=== PATIENT | female | born 1980 | race Caucasian/White ===

== ENCOUNTER 2022-05-24 15:20 | Inpatient (IN) | payer BC ==
[2022-05-24] MEDS ORDERED: CARBOPROST TROMETHAMINE 250 MCG/ML 1 ML AMP IM PRN (16:24)
[2022-05-24] MEDS ORDERED: LIDOCAINE 0.5% (PF) 5 MG/ML (50 ML SDV) SQ PRN (16:24)
[2022-05-24] MEDS ORDERED: TERBUTALINE 1 MG/ML VIAL SQ PRN (16:24)
[2022-05-24] MEDS ORDERED: OXYTOCIN 10 UNIT/ML 1 ML VIAL IM PRN (16:24)
[2022-05-24] MEDS ORDERED: METHYLERGONOVINE 0.2 MG/ML 1 ML AMP IM PRN (16:24)
[2022-05-24] MEDS ORDERED: OXYTOCIN 30 UNITS/500 ML NS 30 UNIT in SALINE 1 500ML.BAG IV SCH (16:30)
[2022-05-24] MEDS: LACTATED RINGERS 1,000 ML IV SCH (16:37)
[2022-05-24 16:59] LABS: Basophils # (A) 0.1 k/uL (0-0.2); Basophils % (A) 0 %; Eosinophils # (A) 0.1 k/uL (0-0.7); Eosinophils % (A) 1 %; HCT 36.4 % (34.0-46.0); Lymphocytes % (A) 13 %; MCH 33.1 pg (25.0-35.0); MCHC 32.8 g/dL (31.0-37.0); MCV 100.7 fL (80.0-100.0); Mean Platelet Volume 9.4; Monocytes # (A) 0.6 k/uL (0-1.0); Monocytes % (A) 4 %; Neutrophils # (A) 12.1 k/uL (1.3-7.7); Neutrophils % (A) 80 %; Platelet Count 299 k/uL (150-450); RBC 3.62 m/uL (3.80-5.40); RDW 12.4 % (11.5-15.5); WBC 15.1 k/uL (3.8-10.6)
--- NOTE | 2022-05-24 18:06 | P.HPOB ---
History of Present Illness H&P Date: 05/24/22 Chief Complaint: Leaking of fluid. This patient is a pleasant 42-year-old 2 para 1 female estimated date of confinement 05/30/2022 estimated gestational age 39 and one sevenths weeks who presents to labor and delivery with complaints of gush of fluid at 2:15 this aft ernoon. Patient noted the fluid was drained. Patient's care per Dr. Stanford and is complicated by advanced for maternal age. Patient was referred to maternal- medicine and has had a negative evaluation. Patient's had regular testing including biophysical profiles and nonstress tests. Review of Systems Genitourinary: Reports Menstruation: Reports amenorrhea Past Medical History Past Medical History: GERD/Reflux History of Any Multi-Drug Resistant Organisms: None Reported Additional Past Surgical History / Comment(s): left breast lumpectomy age 20; patient's had a thyroid biopsy. Past Anesthesia/Blood Transfusion Reactions: Family History of Problems w/ Anesthesia, Postoperative Nausea & Vomiting (PONV) Past Psychological History: No Psychological Hx Reported Smoking Status: Current every day smoker Past Alcohol Use History: None Reported Past Drug Use History: None Reported - Past Family History Father Family Medical History: Diabetes Mellitus, Hypertension Medications and Allergies Home Medications Medication Instructions Recorded Confirmed Type Cetirizine HCl [Zyrtec] 10 mg PO DAILY 05/24/22 05/24/22 History Vit No.179/Iron/Folic 05/24/22 History [ Tablet] diphenhydrAMINE [Benadryl] 25 mg PO BID PRN 05/24/22 05/24/22 History Allergies Allergy/AdvReac Type Severity Reaction Status Date / Time No Known Allergies Allergy Verified 05/24/22 16:17 Exam Vital Signs Temp Pulse Resp BP Pulse Ox 05/24/22 16:42 98.7 F 81 18 147/80 100 Intake and Output 05/24/22 05/24/22 05/24/22 06:59 14:59 22:59 Other: Weight 102.965 kg - OBG Physical Exam Breast: both: normal (no masses) Abdomen: bowel sounds normal, no diffuse tenderness, no bruit present, no guarding noted, no hepatomegaly, no splenomegaly, no mass Vulva: both: normal Vagina: no discharge Cervix: no lesion (Cervix is 2 cm and effaced -2 station), no discharge Uterus: enlarged (Fundal height consistent with dates) Results blood work shows she is O positive, rubella immune, RPR is nonreactive, hepatitis B is negative, HIV is nonreactive, Glucola was normal, anatomy ultrasound was normal, group B strep was negative. Result Diagrams: 05/24/22 16:34 Abnormal Lab Results - Last 24 Hours (Table) 05/24/22 Range/Units 16:34 WBC 15.1 H (3.8-10.6) k/uL RBC 3.62 L (3.80-5.40) m/uL MCV 100.7 H (80.0-100.0) fL Neutrophils # 12.1 H (1.3-7.7) k/uL Assessment and Plan Assessment: This is a pleasant 42-year-old 2 para 1 female 39 and one sevenths weeks gestation admitted to labor and delivery with spontaneous rupture membranes, meconium-stained fluid, and intermittent contractions. Plan is Pitocin a ugmentation of labor and anticipate vaginal delivery. Patient this time does not request an epidural but will take some IV pain medications or other pain control options if she desires. Anticipate vaginal delivery. (1) 39 weeks gestation of Current Visit: Yes Status: Acute Code(s): Z3A.39 - 39 WEEKS GESTATION OF SNOMED Code(s): 51348625 (2) Spontaneous rupture of amniotic membranes Current Visit: Yes Status: Acute Code(s): TAL1991 - SNOMED Code(s): 261189884 (3) Meconium in amniotic fluid Current Visit: Yes Status: Acute Code(s): P96.83 - MECONIUM STAINING SNOMED Code(s): 164089159 (4) Elderly multigravida Current Visit: Yes Status: Acute Code(s): O09.529 - SUPERVISION OF ELDERLY MULTIGRAVIDA, UNSPECIFIED TRIMESTER SNOMED Code(s): 858629970
[2022-05-24 18:07] LABS: INR 0.8 (<1.2); Partial Thromboplastin Time 23.8 sec (22.0-30.0); Prothrombin Time 9.5 sec (9.0-12.0)
[2022-05-24 18:11] LABS: ALT 21 U/L (4-34); AST 27 U/L (14-36); African American GFR (CKD) >90 (>60 ml/min/1.73 sqM); Blood Urea Nitrogen 12 mg/dL (7-17); LDH 518 U/L (313-618); Non-African American GFR(CKD) >90 (>60 ml/min/1.73 sqM); Uric Acid 4.4 mg/dL (3.7-7.4)
[2022-05-24] MEDS ORDERED: BUTORPHANOL 1 MG/ML 1 ML VIAL IV PRN (18:17)
[2022-05-24 18:26] LABS: Appearance,Urine Turbid (Clear); Bacteria,Urine Rare /hpf; Bilirubin,Urine Negative (Negative); Blood,Urine Moderate (Negative); Budding Yeast,Urine Moderate /hpf; Color,Urine Yellow; Glucose,Urine (UA) Negative (Negative); Ketones,Urine Negative (Negative); Leukocyte Esterase,Urine Moderate (Negative); Mucus,Urine Rare /hpf; Nitrite,Urine Negative (Negative); Protein,Urine Trace (Negative); RBC,Urine 114 /hpf (0-5); Specific Gravity,Urine 1.016 (1.001-1.035); Squamous Epithelial Cell,Urine 20 /hpf (0-4); Urobilinogen,Urine <2.0 mg/dL (<2.0); WBC,Urine 21 /hpf (0-5)
[2022-05-24 18:33] LABS: Creatinine,Urine Random 113.9 mg/dL; Protein/Creatinine Ratio,Urine 0.29
[2022-05-24] MEDS ORDERED: ROPIVACAINE 100 MG, fentaNYL (PF). 200 MCG in SODIUM CHLORIDE 0.9% 76 ML EPIDURAL ONE (20:30)
[2022-05-25] MEDS: LACTATED RINGERS 1,000 ML IV SCH (00:25)
[2022-05-25] MEDS ORDERED: HYDROCORTISONE 2.5% RECTAL CREAM 30 GM TUBE RECTAL PRN (00:36)
[2022-05-25] MEDS ORDERED: ZOLPIDEM 5 MG TAB PO PRN (00:36)
[2022-05-25] MEDS ORDERED: ACETAMINOPHEN TAB 325 MG TAB PO PRN (00:36)
[2022-05-25] MEDS ORDERED: SIMETHICONE 80 MG CHEWABLE PO PRN (00:36)
[2022-05-25] MEDS ORDERED: bisacodyL 10 MG SUPP RECTAL PRN (00:36)
[2022-05-25] MEDS ORDERED: diphenhydrAMINE 50 MG/ML 1 ML VIAL IVP PRN (00:36)
[2022-05-25] MEDS ORDERED: LANOLIN CREAM 5 GM TUBE TOPICAL PRN (00:36)
[2022-05-25] MEDS ORDERED: diphenhydrAMINE 25 MG CAP PO PRN (00:36)
[2022-05-25] MEDS ORDERED: BENZOCAINE/MENTHOL SPRAY 1 GM/SPRAY AEROSOL TOPICAL PRN (00:36)
--- NOTE | 2022-05-25 00:42 | P.PROBDLV ---
Vaginal Delivery Note - . Vaginal Delivery Note: Normal spontaneous vaginal delivery viable female Apgars 9 and 9 delivery time was 0018 hours. Please see dictated H&P for intimate details of this patient's admission. In brief summary this is a pleasant 42-year-old 2 para 1 female estimated gestational age 39 and one sevenths weeks who presents to labor and delivery complains of spontaneous rupture membranes 2:00 this afternoon for meconium- stained fluid. heart tones are category 1. Patient's not having regular contractions and therefore has some Pitocin augmentation of labor. Patient initially did not want an epidural however she did receive 1 dose of Stadol and became very uncomfortable at 3 cm dilated. At this time, she did request an epidural which is placed with good relief. Patient's labor progresses quickly thereafter. Patient gets to complete pushes the head to the perineum. Posterior perineum was supported and we have controlled delivery of the 's head over the intact perineum. Mouth and nares are bulb suctioned and the nurse financial administration officer is present for delivery due to meconium. Infant's head is straight occiput anterior presentation. There is a double nuchal cord which is loose and reduced. At this time we have spontaneous delivery of the anterior and posterior shoulder and rest this infant's body without maternal effort. This is a vigorous viable female infant Apgars are 9 and 9 delivery time was 0018 hours. After delivery of the , she is laid on the mother's abdomen. After the cord was done pulsating is doubly clamped and cut. Umbilical cord appears quite thin and green stained. The placenta is spontaneously delivered intact. Of note the placenta appears small and has marginal cord insertion. Inspection of perineum shows no lacerations and no repairs required. All counts correct 3. There are no complications. Blood loss is less than 100 mL. and mother are stable in delivery room.
[2022-05-25] MEDS ORDERED: OXYTOCIN 30 UNITS/500 ML NS 30 UNIT in SALINE 1 500ML.BAG IV SCH (00:45)
[2022-05-25] MEDS: IBUPROFEN 600 MG TAB PO PRN ×3 (02:56→22:04)
[2022-05-25] MEDS: SENNOSIDES-DOCUSATE SODIUM 1 EACH TAB PO SCH ×2 (08:52→20:24)
[2022-05-26 07:01] LABS: Basophils % (A) 0 %; Eosinophils # (A) 0.1 k/uL (0-0.7); Eosinophils % (A) 1 %; HCT 31.6 % (34.0-46.0); HGB 10.8 gm/dL (11.4-16.0); Lymphocytes # (A) 2.1 k/uL (1.0-4.8); Lymphocytes % (A) 14 %; MCH 34.4 pg (25.0-35.0); MCHC 34.3 g/dL (31.0-37.0); MCV 100.5 fL (80.0-100.0); Mean Platelet Volume 9.2; Monocytes # (A) 0.6 k/uL (0-1.0); Monocytes % (A) 4 %; Neutrophils # (A) 12.1 k/uL (1.3-7.7); Neutrophils % (A) 79 %; Platelet Count 282 k/uL (150-450); RBC 3.15 m/uL (3.80-5.40); RDW 12.2 % (11.5-15.5); WBC 15.4 k/uL (3.8-10.6)
[2022-05-26] MEDS: IBUPROFEN 600 MG TAB PO PRN (08:37)
[2022-05-26] MEDS: SENNOSIDES-DOCUSATE SODIUM 1 EACH TAB PO SCH (08:38)
[2022-05-26 08:51] VITALS: BP 138/77; PULSE 75; RESP 17; TEMP 97.5
--- NOTE | 2022-05-26 08:58 | P.DS ---
Providers Date of admission: 05/24/22 15:20 Expected date of discharge: 05/26/22 Attending physician: Riana Stanford Primary care physician: Stated None - Discharge Diagnosis(es) (1) Normal vaginal delivery Current Visit: Yes Status: Acute Hospital Course: Patient presented in labor. She underwent a normal vaginal delivery. course was uncomplicated. She denies nausea, vomiting, chest pain, shortness of breath or any calf pain. Patient will be discharged home day #1 in stable condition to follow-up with me in 6 weeks. Plan - Discharge Summary New Discharge Prescriptions: New Ibuprofen [Motrin] 600 mg PO Q6HR PRN #30 tab PRN Reason: Mild Pain (Scale 1 To 3) No Action Vit No.179/Iron/Folic [ Tablet] diphenhydrAMINE [Benadryl] 25 mg PO BID PRN PRN Reason: Allergy Symptoms Cetirizine HCl [Zyrtec] 10 mg PO DAILY Discharge Medication List Cetirizine HCl [Zyrtec] 10 mg PO DAILY 05/24/22 [History] Vit No.179/Iron/Folic [ Tablet] 05/24/22 [History] diphenhydrAMINE [Benadryl] 25 mg PO BID PRN 05/24/22 [History] Ibuprofen [Motrin] 600 mg PO Q6HR PRN #30 tab 05/26/22 [Rx] Follow up Appointment(s)/Referral(s): Riana Stanford DO [Doctor of Osteopathic Medicine] - 07/12/22 3:45 pm Discharge Disposition: HOME SELF-CARE
== END 2022-05-26 11:30 | disposition home or self-care (01) | DRG 807 ==
LOC: 4FBP 15:20
PROVIDERS: ADMIT Obstetrics & Gynecology; ATTEND Obstetrics & Gynecology
PROC: 10E0XZZ Delivery of Products of Conception, External Approach (ICD-10-PCS; principal; 2022-05-24)
DX: O77.0 Labor and delivery complicated by meconium in amniotic fluid (principal); Z37.0 Single live birth; F17.210 Nicotine dependence, cigarettes, uncomplicated; O43.193 Other malformation of placenta, third trimester; O69.81X0 Labor and delivery complicated by cord around neck, without compression, not applicable or unspecified; O99.334 Smoking (tobacco) complicating childbirth; Z3A.39 39 weeks gestation of pregnancy; Z28.310 Unvaccinated for COVID-19; Z28.21 Immunization not carried out because of patient refusal
CPT/HCPCS: 59025; 81001; 82565; 82570; 83615; 84112; 84156; 84450; 84460; 84520; 84550; 85025; 85610; 85730; 86850; 86900; 86901; 88307; 99213

== ENCOUNTER 2024-04-29 22:55 | Outpatient (CLI) | payer BC ==
--- NOTE | 2024-05-29 09:32 | P.MSEPDOC ---
Presenting Problems - Arrival Data Date of Arrival on Unit: 04/29/24 Time of Arrival on Unit: 22:55 Mode of Transport: Ambulatory - Complaint OB-Reason for Admission/Chief Complaint: Pain Comment: PT c/o epigastric pain 5/10 Medical History - Information : 3 Para: 2 Term: 2 : 0 Abortions: Spontaneous or Elective: 0 Number of Living Children: 2 - Gestational Age Gestational Age by MARV (wks/days): 29 Weeks and 6 Days Review of Systems - Review of Systems Constitutional: No problems Breast: No problems ENT: No problems Cardiovascular: No problems Respiratory: No problems Gastrointestinal: No problems Genitourinary: No problems Musculoskeletal: No problems Neurological: No problems Skin: No problems Medical Screen Scoring - Assessment - Baby A Baseline FHR: 125 Heart Rate - NICHD Category: Category I (Normal) NST: Reactive Physician Notification - Physician Notified Physician Notified Date: 04/29/24 Physician Notified Time: 23:25 Physician: Lakshmi Theodore New Order Received: Yes - Notification Comment Comment: Pt of Dr. Stanford 26 weeks and 5 days. PT c/o epigastric pain 5/10 starting around 2030 following eatting dinner. Pt states she had heartburn prior to dinner and took omeprazol. PT took pepcid after dinner and pain unrelieved. Discussed vitals, NST reactive and cat 1 tones. Order recieved to d/c home and encourage clear liquids tonight and bland diet if heartburn before future meals. Pt to not take omeprazol or pepcid tonight and to follow up with Dr. Stanford prior to next scheduled appointment if pain persists or increases. Maternal Triage Index - Maternal Triage Index Presenting for scheduled procedure w/no complaint: No - Stat/Priority 1 Stat Priority 1: No - Urgent/Priority 2 Urgent Priority 2: No - Prompt/Priority 3 Prompt Priority 3: No - Non-Urgent/Priority 4 Non-Urgent Priority 4: Yes Criteria Met for Priority 4: PT c/o epigastric pain 5/10 starting around 2030 following eatting dinner. Pt states she had heartburn prior to dinner and took omeprazol. PT took pepcid after dinner and pain unrelieved. Disposition - Disposition OB Disposition: Discharge to home Discharge Date: 04/29/24 Discharge Time: 23:40 I agree with the RN Medical Screening Exam: Yes Case reviewed; plan agreed upon as documented in EMR&OBIX.: Yes Diagnosis: RELATED CONDITIONS, UNSPECIFIED, SECOND TRIMESTER
== END 2024-04-29 23:40 | disposition home or self-care (01) ==
LOC: FBPOP 22:55
PROVIDERS: ATTEND Obstetrics & Gynecology Obstetrics
CPT/HCPCS: 59025; 99213

== ENCOUNTER 2024-07-07 05:40 | Inpatient (IN) | payer BC, OTHER ==
[2024-07-07] MEDS ORDERED: METHYLERGONOVINE 0.2 MG/ML 1 ML AMP IM PRN (05:56)
[2024-07-07] MEDS ORDERED: TERBUTALINE 1 MG/ML VIAL SQ PRN (05:56)
[2024-07-07] MEDS ORDERED: LIDOCAINE 0.5% (PF) 5 MG/ML (50 ML SDV) SQ PRN (05:56)
[2024-07-07] MEDS ORDERED: CARBOPROST TROMETHAMINE 250 MCG/ML 1 ML AMP IM PRN (05:56)
[2024-07-07] MEDS ORDERED: OXYTOCIN 10 UNIT/ML 1 ML VIAL IM PRN (05:56)
[2024-07-07] MEDS ORDERED: miSOPROStoL 200 MCG TAB RECTAL PRN (05:56)
[2024-07-07] MEDS ORDERED: miSOPROStoL 200 MCG TAB PO PRN (05:56)
[2024-07-07] MEDS ORDERED: TRANEXAMIC 1,000 MG/100ML-NACL 1,000 MG in EMPTY BAG 1 BAG IV PRN (05:56)
[2024-07-07 06:12] LABS: Basophils # (A) 0.1 k/uL (0-0.2); Basophils % (A) 0 %; Eosinophils # (A) 0.2 k/uL (0-0.7); Eosinophils % (A) 1 %; HCT 34.5 % (34.0-46.0); HGB 11.4 gm/dL (11.4-16.0); Lymphocytes # (A) 2.7 k/uL (1.0-4.8); Lymphocytes % (A) 15 %; MCHC 33.2 g/dL (31.0-37.0); MCV 99.4 fL (80.0-100.0); Monocytes # (A) 0.7 k/uL (0-1.0); Monocytes % (A) 4 %; Neutrophils # (A) 14.2 k/uL (1.3-7.7); Neutrophils % (A) 78 %; Platelet Count 431 k/uL (150-450); RBC 3.47 m/uL (3.80-5.40); RDW 12.6 % (11.5-15.5); WBC 18.1 k/uL (3.8-10.6)
[2024-07-07] MEDS: LACTATED RINGERS 1,000 ML IV SCH (06:14)
[2024-07-07] MEDS: OXYTOCIN 30 UNITS/500 ML NS 30 UNIT in SALINE 1 500ML.BAG IV SCH (06:35)
[2024-07-07] MEDS ORDERED: fentaNYL (PF) 50 MCG/ML 5 ML AMP ONE (09:43)
[2024-07-07] MEDS ORDERED: ROPIVACAINE 5 MG/ML 30 ML VIAL ONE (09:43)
[2024-07-07] MEDS ORDERED: SODIUM CHLORIDE 0.9% 250 ML BAG ONE (09:43)
--- NOTE | 2024-07-07 12:04 | P.HPOB ---
History of Present Illness H&P Date: 07/07/24 Chief Complaint: induction of labor 44 year old at 39 weeks 4 days presents for induction of labor. Her cervix is 1-2/70/-3. She is christ irregularly. heart tones 140 with moderate variability and reactive. Review of Systems All systems: negative Constitutional: Denies chills, Denies fever Eyes: denies blurred vision, denies pain Ears, nose, mouth and throat: Denies headache, Denies sore throat Cardiovascular: Denies chest pain, Denies shortness of breath Respiratory: Denies cough Gastrointestinal: Denies abdominal pain, Denies diarrhea, Denies nausea, Denies vomiting Genitourinary: Denies dysuria, Denies hematuria Musculoskeletal: Denies myalgias Integumentary: Denies pruritus, Denies rash Neurological: Denies numbness, Denies weakness Psychiatric: Denies anxiety, Denies depression Endocrine: Denies fatigue, Denies weight change Past Medical History Past Medical History: GERD/Reflux History of Any Multi-Drug Resistant Organisms: None Reported Additional Past Surgical History / Comment(s): left breast lumpectomy age 20; patient's had a R thyroid biopsy. Past Anesthesia/Blood Transfusion Reactions: Postoperative Nausea & Vomiting (PONV) Past Psychological History: No Psychological Hx Reported Smoking Status: Current every day smoker Past Alcohol Use History: None Reported Past Drug Use History: None Reported - Past Family History Father Family Medical History: Diabetes Mellitus, Hypertension Medications and Allergies Home Medications Medication Instructions Recorded Confirmed Type Cetirizine HCl [Zyrtec] 10 mg PO DAILY 05/24/22 04/29/24 History Vit No.179/Iron/Folic 1 tab PO DAILY 05/24/22 04/29/24 History [ Tablet] Famotidine [Pepcid] 10 mg PO DAILY 04/29/24 04/29/24 History Omeprazole [PriLOSEC] 10 mg PO DAILY 04/29/24 04/29/24 History Allergies Allergy/AdvReac Type Severity Reaction Status Date / Time No Known Allergies Allergy Verified 07/07/24 05:55 Exam Osteopathic Statement: *. No significant issues noted on an osteopathic structural exam other than those noted in the History and Physical/Consult. Intake and Output 07/06/24 07/07/24 07/07/24 22:59 06:59 14:59 Other: # Voids 1 Weight 108.862 kg Heart: Regular rate and rhythm Lungs: Clear to auscultation bilaterally Abdomen: Soft, nontender Extremities: Negative Homans sign Results Result Diagrams: 07/07/24 06:02 Abnormal Lab Results - Last 24 Hours (Table) 07/07/24 Range/Units 06:02 WBC 18.1 H (3.8-10.6) k/uL RBC 3.47 L (3.80-5.40) m/uL Neutrophils # 14.2 H (1.3-7.7) k/uL Assessment and Plan (1) Encounter for induction of labor Current Visit: Yes Status: Acute Code(s): Z34.90 - ENCNTR FOR SUPRVSN OF NORMAL , UNSP, UNSP TRIMESTER SNOMED Code(s): 161312888 (2) Advanced maternal age (AMA), 40 years or greater Current Visit: Yes Status: Acute Code(s): NUO9493 - SNOMED Code(s): 597413315 (3) 39 weeks gestation of Current Visit: No Status: Acute Code(s): Z3A.39 - 39 WEEKS GESTATION OF SNOMED Code(s): 81221412 (4) Tobacco abuse Current Visit: Yes Status: Acute Code(s): Z72.0 - TOBACCO USE SNOMED Code(s): 012967042 Plan: 1. induction of labor with amniotomy and pitocin 2. anticipate normal vaginal delivery.
[2024-07-07] MEDS ORDERED: diphenhydrAMINE 50 MG CAP PO PRN (18:49)
[2024-07-07] MEDS ORDERED: diphenhydrAMINE 25 MG CAP PO PRN (18:49)
[2024-07-07] MEDS ORDERED: HYDROCORTISONE 2.5% RECTAL CREAM 30 GM TUBE RECTAL PRN (18:49)
[2024-07-07] MEDS ORDERED: BENZOCAINE/MENTHOL SPRAY 1 GM/SPRAY AEROSOL TOPICAL PRN (18:49)
[2024-07-07] MEDS ORDERED: SIMETHICONE 80 MG CHEWABLE PO PRN (18:49)
[2024-07-07] MEDS ORDERED: ZOLPIDEM 5 MG TAB PO PRN (18:49)
[2024-07-07] MEDS ORDERED: diphenhydrAMINE 50 MG/ML 1 ML VIAL IVP PRN ×2 (18:49)
[2024-07-07] MEDS ORDERED: LANOLIN CREAM 1 GM TUBE TOPICAL PRN (18:49)
[2024-07-07] MEDS: IBUPROFEN 800 MG TAB PO PRN (19:18)
[2024-07-07] MEDS: SENNOSIDES-DOCUSATE SODIUM 1 EACH TAB PO SCH (21:07)
[2024-07-07] MEDS: ACETAMINOPHEN TAB 500 MG TAB PO PRN (23:47)
[2024-07-08 06:09] LABS: Basophils % (A) 0 %; Eosinophils # (A) 0.2 k/uL (0-0.7); Eosinophils % (A) 1 %; HCT 31.1 % (34.0-46.0); HGB 10.1 gm/dL (11.4-16.0); Lymphocytes # (A) 2.4 k/uL (1.0-4.8); Lymphocytes % (A) 13 %; MCH 32.6 pg (25.0-35.0); MCHC 32.4 g/dL (31.0-37.0); MCV 100.6 fL (80.0-100.0); Mean Platelet Volume 8.3; Monocytes # (A) 0.9 k/uL (0-1.0); Monocytes % (A) 5 %; Neutrophils # (A) 15.5 k/uL (1.3-7.7); Neutrophils % (A) 80 %; Platelet Count 349 k/uL (150-450); RBC 3.09 m/uL (3.80-5.40); RDW 12.6 % (11.5-15.5); WBC 19.3 k/uL (3.8-10.6)
--- NOTE | 2024-07-08 07:41 | P.PROBDLV ---
Vaginal Delivery Note - . Vaginal Delivery Note: 44 year old at 39 weeks 4 days presents for induction of labor. Her cervix is 1-2/70/-3. She is christ irregularly. heart tones 140 with moderate variability and reactive.Amniotomy performed at 7:20 AM and clear fluid noted. When she was uncomfortable she did get an epidural. Her cervix was completely dilated at 1700. She pushed, and a viable male over intact perineum under epidural anesthesia at 1720. Delivered OA, and anterior shoulder delivered gentle downward body followed by posterior shoulder and rest of body. Nose and mouth bulb suction, ligament cut, infant placed on mother's abdomen. Apgars 9, 9, weight 9 lbs. 5 oz. Placenta delivered spontaneously, intact with three-vessel cord at 1723. Vagina, cervix, perineum inspected. No lacerations noted. Estimated blood loss 150 mL. Mother and baby in stable condition.
--- NOTE | 2024-07-08 07:53 | P.DS ---
Providers Date of admission: 07/07/24 05:40 Expected date of discharge: 07/08/24 Attending physician: Riana Stanford Primary care physician: Stated None - Discharge Diagnosis(es) (1) Encounter for induction of labor Current Visit: Yes Status: Resolved (2) Advanced maternal age (AMA), 40 years or greater Current Visit: Yes Status: Resolved (3) 39 weeks gestation of Current Visit: No Status: Resolved (4) Tobacco abuse Current Visit: Yes Status: Resolved Hospital Course: Status post normal vaginal delivery day #1 patient seen and examined. Denies nausea, vomiting, chest pain, shortness of breath or calf pain. Patient be discharged home day #1 in stable condition to follow-up with me in 6 weeks. Plan - Discharge Summary New Discharge Prescriptions: New Ibuprofen [Motrin] 800 mg PO Q8HR PRN #30 tab PRN Reason: Pain No Action Vit No.179/Iron/Folic [ Tablet] 1 tab PO DAILY Cetirizine HCl [Zyrtec] 10 mg PO DAILY Famotidine [Pepcid] 10 mg PO DAILY Omeprazole [PriLOSEC] 10 mg PO DAILY Discharge Medication List Cetirizine HCl [Zyrtec] 10 mg PO DAILY 05/24/22 [History] Vit No.179/Iron/Folic [ Tablet] 1 tab PO DAILY 05/24/22 [History] Famotidine [Pepcid] 10 mg PO DAILY 04/29/24 [History] Omeprazole [PriLOSEC] 10 mg PO DAILY 04/29/24 [History] Ibuprofen [Motrin] 800 mg PO Q8HR PRN #30 tab 07/08/24 [Rx] Follow up Appointment(s)/Referral(s): Riana Stanford DO [Doctor of Osteopathic Medicine] - 08/19/24 11:30 am
[2024-07-08 09:15] VITALS: BP 129/72; PULSE 74; RESP 14; TEMP 98
== END 2024-07-08 18:00 | disposition home or self-care (01) | DRG 560 ==
LOC: 4FBP 05:40
PROVIDERS: ADMIT Obstetrics & Gynecology; ATTEND Obstetrics & Gynecology
PROC: 10E0XZZ Delivery of Products of Conception, External Approach (ICD-10-PCS; principal; 2024-07-07)
PROC: 10907ZC Drainage of Amniotic Fluid, Therapeutic from Products of Conception, Via Natural or Artificial Opening (ICD-10-PCS; 2024-07-07)
PROC: 3E033VJ Introduction of Other Hormone into Peripheral Vein, Percutaneous Approach (ICD-10-PCS; 2024-07-07)
DX: O99.334 Smoking (tobacco) complicating childbirth (principal); Z37.0 Single live birth; F17.210 Nicotine dependence, cigarettes, uncomplicated; Z3A.39 39 weeks gestation of pregnancy; Z82.49 Family history of ischemic heart disease and other diseases of the circulatory system
CPT/HCPCS: 85025; 86850; 86900; 86901

== ENCOUNTER → 2024-09-02 | Outpatient (CLI) | payer OTHER ==
[2024-09-02 15:00] LABS: Basophils # (A) 0.04 X 10*3/uL (0.00-0.10); Basophils % (A) 0.4 %; Eosinophils # (A) 0.12 X 10*3/uL (0.04-0.35); Eosinophils % (A) 1.2 %; HCT 39.2 % (37.2-46.3); HGB 12.3 g/dL (12.0-15.0); Lymphocytes # (A) 2.36 X 10*3/uL (0.90-5.00); Lymphocytes % (A) 24.4 %; MCH 31.3 pg (27.0-32.0); MCHC 31.4 g/dL (32.0-37.0); MCV 99.7 FL (80.0-97.0); Mean Platelet Volume 10.5 FL (9.5-12.2); Monocytes # (A) 0.68 X 10*3/uL (0.20-1.00); NRBC Per 100 WBC 0 X 10*3/uL (0.00-0.01); Neutrophils # (A) 6.44 X 10*3/uL (1.80-7.70); Neutrophils % (A) 66.7 %; Platelet Count 408 X 10*3/uL (140-440); RBC 3.93 X 10*6/uL (4.10-5.20); RDW 12.2 % (11.5-14.5); WBC 9.67 X 10*3/uL (4.50-10.00)
== END | disposition home or self-care (01) ==
LOC: LABWHC1 10:57
PROVIDERS: ATTEND Obstetrics & Gynecology
DX: Z01.818 Encounter for other preprocedural examination (principal)
CPT/HCPCS: 36415; 85025

== ENCOUNTER 2024-09-08 07:27 | Day surgery (SDC) | payer OTHER ==
--- NOTE | 2024-09-08 07:19 | P.HPOB ---
History of Present Illness H&P Date: 09/08/24 Chief Complaint: family planning 44 year old presents for laparoscopic tubal ligation. Review of Systems All systems: negative Constitutional: Denies chills, Denies fever Eyes: denies blurred vision, denies pain Ears, nose, mouth and throat: Denies headache, Denies sore throat Cardiovascular: Denies chest pain, Denies shortness of breath Respiratory: Denies cough Gastrointestinal: Denies abdominal pain, Denies diarrhea, Denies nausea, Denies vomiting Genitourinary: Denies dysuria, Denies hematuria Musculoskeletal: Denies myalgias Integumentary: Denies pruritus, Denies rash Neurological: Denies numbness, Denies weakness Psychiatric: Denies anxiety, Denies depression Endocrine: Denies fatigue, Denies weight change Past Medical History Past Medical History: GERD/Reflux Additional Past Medical History / Comment(s): allergies History of Any Multi-Drug Resistant Organisms: None Reported Additional Past Surgical History / Comment(s): left breast lumpectomy age 20; patient's had a R thyroid biopsy. epidural with pregnancies Past Anesthesia/Blood Transfusion Reactions: No Reported Reaction Smoking Status: Current every day smoker - Past Family History Father Family Medical History: Diabetes Mellitus, Hypertension Medications and Allergies Home Medications Medication Instructions Recorded Confirmed Type Cetirizine HCl [Zyrtec] 10 mg PO DAILY 05/24/22 09/03/24 History Acetaminophen [Tylenol Extra 500 mg PO DIRECTED PRN 09/03/24 09/03/24 History Strength] diphenhydrAMINE HCL [Benadryl 50 mg PO DIRECTED PRN 09/03/24 09/03/24 History Allergy] Allergies Allergy/AdvReac Type Severity Reaction Status Date / Time No Known Allergies Allergy Verified 09/03/24 16:03 Exam Osteopathic Statement: *. No significant issues noted on an osteopathic structural exam other than those noted in the History and Physical/Consult. Heart: Regular rate and rhythm Lungs: Clear to auscultation bilaterally Abdomen: Soft, nontender Extremities: Negative Homans sign Assessment and Plan (1) Family planning Status: Acute Code(s): Z30.09 - ENCOUNTER FOR OTH GENERAL CNSL AND ADVICE ON CONTRACEPTION SNOMED Code(s): 091552660 Plan: 1. laparoscopic tubal ligation
[~2024-09-08 07:27] MED LIST: MIDAZOLAM 2 MG/2 ML VIAL IV PRN; Pre Op ABX Message 1 EACH MISC MISCELLANE ONE; SCOPOLAMINE 1 MG/72 HR PATCH TRANSDERM ONE
[2024-09-08] MEDS: IV FLUID CONTINUATION 1,000 ML IV ONE ×2 (07:55→10:16)
[2024-09-08] MEDS: LACTATED RINGERS 1,000 ML IV SCH (08:08)
[2024-09-08] MEDS: DEXAMETHASONE SOD PHOSPHATE 4 MG/ML 1 ML VIAL IV ONE (08:09)
[2024-09-08] MEDS: ONDANSETRON 4 MG/2 ML VIAL IVP ONE (08:09)
[2024-09-08] MEDS ORDERED: LIDOCAINE 1% INJ 10MG/ML (20 ML MDV) ONE (08:57)
[2024-09-08] MEDS ORDERED: MIDAZOLAM 2 MG/2 ML VIAL ONE (08:57)
[2024-09-08] MEDS ORDERED: NEOSTIGMINE 1 MG/ML 10 ML VIAL ONE (08:57)
[2024-09-08] MEDS ORDERED: SUCCINYLCHOLINE CHLORIDE 200 MG/10 ML VIAL IV ONE (08:57)
[2024-09-08] MEDS ORDERED: fentaNYL (PF) 50 MCG/ML 2 ML AMP ONE (08:57)
[2024-09-08] MEDS ORDERED: ROCURONIUM 10 MG/ML (5 ML VIAL) IV ONE (08:57)
[2024-09-08] MEDS ORDERED: PROPOFOL 10 MG/ML 20 ML VIAL IV ONE (08:57)
[2024-09-08] MEDS ORDERED: GLYCOPYRROLATE 0.2 MG/ML 2 ML VIAL ONE (08:57)
[2024-09-08] MEDS: BUPIVACAINE (PF) 0.25% 30 ML VIAL SQ ONE ×2 (09:18)
--- NOTE | 2024-09-08 09:36 | P.OP ---
Date of Procedure: 09/08/24 Preoperative Diagnosis: 1. family planning Postoperative Diagnosis: family planning Procedure(s) Performed: Laparoscopic tubal ligation Anesthesia: ROMINA Surgeon: Riana Stanford Estimated Blood Loss (ml): 3 IV fluids (ml): 600 Urine output (ml): 100 Pathology: none sent Condition: stable Disposition: PACU Description of Procedure: Patient was taken to the operating room where general anesthesia was obtained without difficulty. She was prepped and draped in normal sterile fashion in the dorsal lithotomy position, legs placed in the Simeon stirrups. Bladder drained of all urine. Fairview speculum placed in the vagina and the anterior lip the cervix was grasped with single-tooth tenaculum. The uterus is sounded to 8 cm and the kroner manipulator was placed. Attention was then turned to the abdomen and gloves were changed. A 10 mm infraumbilical incision was made the scalpel and 10 mm optical trocar was placed under direct visualization. A 5 mm suprapubic Incision was made and a 5 mm optical trocar was placed under direct visualization. Survey of the pelvis revealed normal uterus tubes and ovaries. The left fallopian tube was grasped with a Kleppinger and fulgurated 2-3 cm on this side in the ampullar portion. The right fallopian tube was grasped with a Kleppinger and fulgurated 2-3 cm in the ampullar portion. All instruments were then removed from the abdomen and vagina. The 10 mm infraumbilical incision was closed with 0 Vicryl and the fascial layer and then 4-0 Vicryl in a subcuticular fashion. The 5 mm incision was closed with 4-0 Vicryl in a subcuticular fashion. Patient tolerated procedure well, sponge and instrument counts correct 2 and she was taken to recovery room in stable condition.
[2024-09-08 09:42] VITALS: TEMP 97.1
[2024-09-08] MEDS: HYDROmorphone 0.5 MG/0.5 ML SYRINGE IVP PRN (09:47)
[2024-09-08 10:38] VITALS: RESP 16
[2024-09-08 10:59] VITALS: BP 103/66; PULSE 58
== END 2024-09-08 11:17 | disposition home or self-care (01) ==
LOC: OR 07:27
PROVIDERS: ATTEND Obstetrics & Gynecology
DX: Z30.02 Counseling and instruction in natural family planning to avoid pregnancy (principal); J30.2 Other seasonal allergic rhinitis; K21.9 Gastro-esophageal reflux disease without esophagitis; F17.200 Nicotine dependence, unspecified, uncomplicated; Z79.899 Other long term (current) drug therapy
CPT/HCPCS: 81025; 58670; J2250; J0330; J1100; J2710; J2405; J2003; J3010; J2704; J1171; J0665; J1596